=== PATIENT | female | born 1990 | race Two or more races ===

== ENCOUNTER 2016-12-02 12:32 | Emergency (ER) | payer OTHER ==
[2016-12-02 13:26] LABS: URINE BILIRUBIN NEGATIVE (NEGATIVE); URINE BLOOD NEGATIVE (NEGATIVE); URINE GLUCOSE (UA) NEGATIVE (NEGATIVE); URINE LEUKOCYTE ESTERASE NEGATIVE (NEGATIVE); URINE NITRITE NEGATIVE (NEGATIVE); URINE PROTEIN NEGATIVE (NEGATIVE); URINE UROBILINOGEN NORMAL (0-1 mg/dl)
[2016-12-02 13:27] LABS: URINE APPEARANCE CLEAR; URINE COLOR YELLOW
[2016-12-02 13:30] LABS: HCG,QUALITATIVE URINE NEGATIVE
--- NOTE | 2016-12-02 14:36 | US ---
Exam: Complete pelvic ultrasound COMPARISON: None INDICATION: Pain, evaluate for torsion. Patient describes abdominal pain for 3 months. Findings: Transabdominal and transvaginal pelvic ultrasound was obtained. Retroverted uterus measures 7.2 x 4.2 x 6.0 cm and is homogeneous in echotexture. No myometrial masses are identified. Endometrium within normal limits measuring up to 8 mm in bilayer thickness on the transvaginal exam. Right ovary measures 3.5 x 2.5 x 2.7 cm and left or measures 4.2 x 2.0 x 2.5 cm. There is no cystic or solid ovarian mass. Blood flow is present within both ovaries. There is a minimal amount of free fluid, within physiologic range although it does appear complicated with some internal echoes but no septations. IMPRESSION: Minimal amount of complicated fluid within the pelvis which is of uncertain etiology and significance. There is no evidence of ovarian torsion. Uterus is unremarkable. Patient's beta hCG is negative. Findings were discussed with Dr. Mcdonald 1430 hours 12/02/2016.
[2016-12-04 14:42] LABS: CHLAMYDIA BD Negative (Negative); N.GONORRHOEAE BD Negative (Negative); SOURCE Urine (())
== END 2016-12-02 14:47 | disposition home or self-care (01) ==
LOC: ED 12:32
DX: R10.30 Lower abdominal pain, unspecified (principal); J45.909 Unspecified asthma, uncomplicated; F17.210 Nicotine dependence, cigarettes, uncomplicated

== ENCOUNTER 2017-01-11 17:23 | Emergency (ER) | payer OTHER ==
[2017-01-11 18:58] LABS: HCG,QUALITATIVE URINE NEGATIVE
[2017-01-11] MEDS ORDERED: DEXAMETHASONE 4 MG TABLET ONE (19:04)
== END 2017-01-11 19:24 | disposition home or self-care (01) ==
LOC: ED 17:23
DX: J02.9 Acute pharyngitis, unspecified (principal); F17.210 Nicotine dependence, cigarettes, uncomplicated
CPT/HCPCS: 81025; 87880; 99283 ×2; A9270